=== PATIENT | male | born 1930 | race Caucasian/White ===

== ENCOUNTER → 2017-10-31 | Outpatient (CLI) | payer BC ==
[2017-10-31 13:37] LABS: BASO % 0.3 % (0.0-1.0); EOS # 0.2 10^3/uL (0.0-0.50); HEMATOCRIT 38.6 % (42.0-52.0); HEMOGLOBIN 12.9 g/dl (13.5-17.5); IMMATURE GRANULOCYTE % 0.3 % (0-3.0); LYMPH # 1.4 10^3/uL (1.5-4.5); LYMPH % 19.1 % (24.0-44.0); MEAN CORPUSCULAR HEMOGLOBIN 32.2 pg (27.0-33.0); MEAN CORPUSCULAR HGB CONC 33.4 g/dl (32.0-36.5); MEAN CORPUSCULAR VOLUME 96.3 fl (80.0-96.0); MONO # 0.9 10^3/uL (0.0-0.8); MONO % 11.7 % (0.0-5.0); NEUTROPHILS # 4.9 10^3/uL (1.8-7.7); NEUTROPHILS % 66.6 % (36.0-66.0); PLATELET COUNT, AUTOMATED 157 10^3/uL (150-450); RED BLOOD COUNT 4.01 10^6/uL (4.30-6.10); RED CELL DISTRIBUTION WIDTH 13.1 % (11.5-14.5); WHITE BLOOD COUNT 7.4 10^3/uL (4.0-10.0)
[2017-10-31 14:05] LABS: URIC ACID 8.5 MG/DL (3.5-7.2)
== END ==
LOC: M WUC 12:10
DX: M25.521 Pain in right elbow (principal)

== ENCOUNTER → 2017-12-05 | Outpatient (CLI) | payer BC ==
[2017-12-05 12:35] LABS: INR 2.28; PROTHROMBIN TIME 25.6 SECONDS (12.1-14.4)
== END ==
LOC: M WUC 10:04
DX: I48.2 Chronic atrial fibrillation (principal)
CPT/HCPCS: 85610

== ENCOUNTER → 2017-12-29 | Outpatient (CLI) | payer BC ==
[2017-12-29 14:47] LABS: INR 3.51
== END ==
LOC: M WUC 12:10
DX: I48.2 Chronic atrial fibrillation (principal)
CPT/HCPCS: 85610

== ENCOUNTER → 2018-01-29 | Outpatient (CLI) | payer BC ==
[2018-01-29 12:40] LABS: INR 2.93; PROTHROMBIN TIME 31.2 SECONDS (12.1-14.4)
== END ==
LOC: M WUC 10:21
DX: I48.2 Chronic atrial fibrillation (principal)
CPT/HCPCS: 85610

== ENCOUNTER → 2018-12-07 | Outpatient (CLI) | payer BC ==
[2018-12-07 13:35] LABS: INR 2.48; PROTHROMBIN TIME 26.7 SECONDS (11.8-14.0)
== END ==
LOC: M WUC 11:13
PROVIDERS: ATTEND Internal Medicine Cardiovascular Disease
DX: Z51.81 Encounter for therapeutic drug level monitoring (principal); Z79.01 Long term (current) use of anticoagulants; I48.2 Chronic atrial fibrillation

== ENCOUNTER → 2019-01-21 | Outpatient (CLI) | payer BC ==
[2019-01-21 17:42] LABS: INR 2.86; PROTHROMBIN TIME 29.9 SECONDS (11.8-14.0)
== END ==
LOC: M WUC 12:43
PROVIDERS: ATTEND Internal Medicine Cardiovascular Disease
DX: Z79.01 Long term (current) use of anticoagulants (principal); I48.2 Chronic atrial fibrillation

== ENCOUNTER → 2019-12-20 | Outpatient (CLI) | payer BC ==
[2019-12-20 13:45] LABS: INR 2.56; PROTHROMBIN TIME 27.4 SECONDS (11.8-14.0)
== END ==
LOC: M WUC 10:50
PROVIDERS: ATTEND Internal Medicine Cardiovascular Disease
DX: I48.21 Permanent atrial fibrillation (principal); Z79.01 Long term (current) use of anticoagulants

== ENCOUNTER → 2020-01-17 | Outpatient (REF) | payer BC, MEDICARE ==
[2020-02-16 13:24] LABS: INR 2.33; PROTHROMBIN TIME 26.1 SECONDS (11.8-14.0)
== END ==
LOC: M LABWUC 12:26
PROVIDERS: ATTEND Internal Medicine Cardiovascular Disease
DX: Z79.01 Long term (current) use of anticoagulants (principal); I48.21 Permanent atrial fibrillation

== ENCOUNTER → 2020-12-14 | Outpatient (CLI) | payer BC ==
[2020-12-14 20:10] LABS: INR 1.53; PROTHROMBIN TIME 18.7 SECONDS (12.5-14.3)
== END ==
LOC: M WUC 11:33
PROVIDERS: ATTEND Internal Medicine Cardiovascular Disease
DX: I48.21 Permanent atrial fibrillation (principal); Z79.01 Long term (current) use of anticoagulants

== ENCOUNTER → 2020-12-28 | Outpatient (CLI) | payer BC ==
[2020-12-28 16:39] LABS: INR 1.86; PROTHROMBIN TIME 21.8 SECONDS (12.5-14.3)
== END ==
LOC: M WUC 11:43
PROVIDERS: ATTEND Internal Medicine Cardiovascular Disease
DX: I48.21 Permanent atrial fibrillation (principal); Z79.01 Long term (current) use of anticoagulants

== ENCOUNTER → 2021-01-05 | Outpatient (REF) | payer BC ==
[2021-01-05 16:42] LABS: INR 2.68; PROTHROMBIN TIME 28.9 SECONDS (12.7-14.5)
== END ==
LOC: M WUC 15:37
PROVIDERS: ATTEND Internal Medicine Cardiovascular Disease
DX: I48.21 Permanent atrial fibrillation (principal); Z79.01 Long term (current) use of anticoagulants

== ENCOUNTER → 2021-01-22 | Outpatient (REF) | payer BC ==
[2021-01-22 16:51] LABS: INR 2.21; PROTHROMBIN TIME 24.9 SECONDS (12.7-14.5)
== END ==
LOC: M PLALAB 15:39
PROVIDERS: ATTEND Internal Medicine Cardiovascular Disease
DX: I48.21 Permanent atrial fibrillation (principal); Z79.01 Long term (current) use of anticoagulants

== ENCOUNTER 2021-01-25 12:10 | Emergency (ER) | payer BC ==
[~2021-01-25] VITALS: Ht 177.8 cm; Wt 81.2 kg
--- NOTE | 2021-01-25 14:09 | REP ---
INDICATION: CHEST PAIN. COMPARISON: None. TECHNIQUE: Single portable AP view of the chest was performed. FINDINGS: There is mild cardiomegaly. The mediastinal silhouette is unremarkable. 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 No infiltrate is seen in either lung. IMPRESSION: No acute pulmonary disease.Mild cardiomegaly. <Electronically signed by Bentley Cohn > 01/25/21 [id number]
[2021-01-25 14:26] LABS: BASO % 0.6 % (0.0-1.0); HEMATOCRIT 35.4 % (42.0-52.0); HEMOGLOBIN 11.5 g/dl (13.5-17.5); LYMPH # 1.2 10^3/uL (1.5-5.0); MEAN CORPUSCULAR HGB CONC 32.5 g/dl (32.0-36.5); MEAN CORPUSCULAR VOLUME 98.6 fl (80.0-96.0); MONO # 0.8 10^3/uL (0.0-0.8); MONO % 14.7 % (2.0-8.0); NEUTROPHILS # 3.3 10^3/uL (1.5-8.5); NEUTROPHILS % 62.1 % (36.0-66.0); PLATELET COUNT, AUTOMATED 125 10^3/uL (150-450); RED BLOOD COUNT 3.59 10^6/uL (4.30-6.10); WHITE BLOOD COUNT 5.2 10^3/uL (4.0-10.0)
[2021-01-25 14:37] LABS: INR 2.01; PROTHROMBIN TIME 23.1 SECONDS (12.7-14.5)
[2021-01-25 14:38] LABS: PARTIAL THROMBOPLASTIN TIME 34.2 SECONDS (25.9-37.0)
[2021-01-25 14:52] LABS: ALBUMIN 3.8 GM/DL (3.2-5.2); BILIRUBIN,DIRECT 0.3 MG/DL (0.0-0.2); BILIRUBIN,TOTAL 0.8 MG/DL (0.2-1.0); CALCIUM LEVEL 8.9 MG/DL (8.8-10.2); CK-MB VALUE MASS 4.7 NG/ML (<3.6); CREATININE FOR GFR 2.91 MG/DL (0.70-1.30); FREE T4 1.04 NG/DL (0.76-1.46); GLOMERULAR FILTRATION RATE 21.8 (>35); MB/CK RELATIVE INDEX 2.96 (< OR =4); POTASSIUM SERUM 4.7 MEQ/L (3.5-5.1); THYROID STIMULATING HORMONE 2.56 uIU/ML (0.358-3.740); TOTAL PROTEIN 6.4 GM/DL (6.4-8.2); TROPONIN I 0.03 NG/ML (< 0.10)
[2021-01-25] MEDS ORDERED: NS 500 ML IV ONE (15:35)
[2021-01-25] MEDS ORDERED: TORS20TA2 PO (16:03)
[2021-01-25] MEDS ORDERED: DIGO0.127 PO (16:03)
[2021-01-25] MEDS ORDERED: ATOR1TAB21 PO (16:03)
[2021-01-25] MEDS ORDERED: TAMS1CAP17 PO (16:03)
[2021-01-25] MEDS ORDERED: LISI-898 PO (16:03)
[2021-01-25] MEDS ORDERED: CARV6.25 PO (16:03)
[2021-01-25] MEDS ORDERED: JANT5TAB PO (16:03)
[2021-01-25] MEDS ORDERED: NOXI1TAB PO (16:03)
[2021-01-25] MEDS ORDERED: HYDR200T3 PO (16:03)
[2021-01-25 16:48] LABS: DIGOXIN LEVEL 0.9 NG/ML (0.5-2.0); MAGNESIUM LEVEL 2.3 MG/DL (1.8-2.4)
[2021-01-25 17:15] VITALS: BP 132/67
--- NOTE | 2021-01-26 10:12 | ECGEPIP ---
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
== END 2021-01-25 17:41 | disposition home or self-care (01) ==
LOC: M ED 12:10
DX: N18.9 Chronic kidney disease, unspecified (principal); E86.0 Dehydration; D64.9 Anemia, unspecified; I12.9 Hypertensive chronic kidney disease with stage 1 through stage 4 chronic kidney disease, or unspecified chronic kidney disease; I48.91 Unspecified atrial fibrillation; G89.29 Other chronic pain; M54.5 Low back pain; Z79.899 Other long term (current) drug therapy; Z79.01 Long term (current) use of anticoagulants